=== PATIENT | female | born 1960 | race Caucasian/White ===

== ENCOUNTER 2017-08-12 09:44 | Day surgery (SDC) | payer OTHER ==
[2017-08-12] MEDS ORDERED: NS 1,000 ML IV (10:30)
[2017-08-12] MEDS ORDERED: fentaNYL 100 MCG/2 ML INJECTION (J3010) As Ordered (11:40)
[2017-08-12] MEDS ORDERED: LIDOCAINE 2% INJ 100 MG/5 ML SDV (FOR ANES.) As Ordered (11:40)
[2017-08-12] MEDS ORDERED: PROPOFOL 500 MG/50 ML VIAL As Ordered (11:40)
[2017-08-12] MEDS ORDERED: PROPOFOL 200 MG/20 ML VIAL As Ordered (12:17)
== END 2017-08-12 13:05 | disposition home or self-care (01) ==
LOC: M OPP 09:44
DX: K64.8 Other hemorrhoids (principal); K63.3 Ulcer of intestine; K29.70 Gastritis, unspecified, without bleeding; R63.4 Abnormal weight loss; K21.9 Gastro-esophageal reflux disease without esophagitis; M12.9 Arthropathy, unspecified; F41.9 Anxiety disorder, unspecified; R16.0 Hepatomegaly, not elsewhere classified; F32.9 Major depressive disorder, single episode, unspecified; Z79.899 Other long term (current) drug therapy; Z98.51 Tubal ligation status; Z91.89 Other specified personal risk factors, not elsewhere classified; Z98.890 Other specified postprocedural states
CPT/HCPCS: 45380